=== PATIENT | female | born 1955 | race Caucasian/White ===

== ENCOUNTER 2019-01-13 15:03 | Inpatient (IN) | payer OTHER ==
[~2019-01-13] VITALS: Ht 165.1 cm; Wt 53.2 kg
[~2019-01-13 15:03] MED LIST: ACET325T14 PO; ALPR1TAB2 PO; AMOX250S23 PO; AMOXICLLIN PO; AMPI3VIA IV; CHLO15MO PO; HEPA50002 SQ; HYDR1TAB20 PO; LORA-446 PO; LORA0.5T PO; OXYC5SOL8 PO; PANT40TA5 PO; PYRI60TA2 PO; VITAMIN A
[2019-01-13] MEDS ORDERED: SODIUM CHLORIDE 0.9% 1,000 ML IV SCH (15:04)
[2019-01-13] MEDS ORDERED: SCOPOLAMINE PATCH, 1.5MG PATCH.TD72 TD PRN (15:30)
[2019-01-13] MEDS ORDERED: ATROPINE OPHTH SOLN 1%, 5ML BC PRN (15:30)
[2019-01-13] MEDS: PYRIDOSTIGMINE 60 MG TABLET PO SCH ×3 (16:00→21:00)
[2019-01-13] MEDS: MORPHINE SULFATE 4 MG/ML, 1ML IVPush PRN ×5 (16:52→23:14)
[2019-01-13] MEDS: ONDANSETRON 2MG/ML, 2ML IVPush PRN ×2 (16:56→23:18)
[2019-01-13] MEDS: LORazepam 2 MG/ML, 1ML IVPush PRN ×2 (17:11→23:56)
[2019-01-14] MEDS: MORPHINE SULFATE 4 MG/ML, 1ML IVPush PRN ×9 (01:40→20:24)
[2019-01-14] MEDS: PYRIDOSTIGMINE 60 MG TABLET PO SCH (09:00)
[2019-01-14] MEDS: LORazepam 2 MG/ML, 1ML IVPush PRN (09:24)
[2019-01-14] MEDS ORDERED: MORPHINE SULFATE 4 MG/ML, 1ML IVPush PRN ×2 (11:30)
[2019-01-14] MEDS: LORazepam 2 MG/ML, 1ML IVPush SCH ×3 (12:01→20:23)
== END 2019-01-15 02:10 | disposition expired | DRG 371 ==
LOC: 3NW 15:03
PROVIDERS: ADMIT Internal Medicine; ATTEND Internal Medicine
DX: K65.2 Spontaneous bacterial peritonitis (principal); K55.059 Acute (reversible) ischemia of intestine, part and extent unspecified; K56.609 Unspecified intestinal obstruction, unspecified as to partial versus complete obstruction; C15.9 Malignant neoplasm of esophagus, unspecified; R18.0 Malignant ascites; R64 Cachexia; Z68.1 Body mass index [BMI] 19.9 or less, adult; C77.9 Secondary and unspecified malignant neoplasm of lymph node, unspecified; C78.6 Secondary malignant neoplasm of retroperitoneum and peritoneum; C79.71 Secondary malignant neoplasm of right adrenal gland; C79.72 Secondary malignant neoplasm of left adrenal gland; J90 Pleural effusion, not elsewhere classified; Z88.2 Allergy status to sulfonamides; Z88.8 Allergy status to other drugs, medicaments and biological substances; D50.9 Iron deficiency anemia, unspecified; E88.09 Other disorders of plasma-protein metabolism, not elsewhere classified; F41.9 Anxiety disorder, unspecified; G70.00 Myasthenia gravis without (acute) exacerbation; G89.29 Other chronic pain; M54.9 Dorsalgia, unspecified; R13.10 Dysphagia, unspecified; Z51.5 Encounter for palliative care; Z66 Do not resuscitate; Z93.4 Other artificial openings of gastrointestinal tract status
CPT/HCPCS: G0378; J2405; J2060